=== PATIENT | male | born 1990 | race Caucasian/White ===

== ENCOUNTER → 2017-06-24 | Outpatient (CLI) | payer OTHER ==
--- NOTE | 2017-06-27 13:49 | PULMONARY FUNCTION TEST ---
SPIROMETRY REPORT INTERPRETATION: Pre-bronchodilator spirometry is within normal limits. There was no significant response to bronchodilator, but this should not preclude a therapeutic trial if clinically warranted. Clinical correlation is needed.
== END | disposition home or self-care (01) ==
LOC: C.RC 10:22
PROVIDERS: ATTEND Obstetrics & Gynecology
DX: R06.02 Shortness of breath (principal); R05 Cough